=== PATIENT | male | born 1955 | race African-American/Black ===

== ENCOUNTER 2019-05-17 12:27 | Emergency (ER) | payer OTHER ==
[~2019-05-17] VITALS: Ht 170.2 cm; Wt 100.0 kg
[~2019-05-17 12:27] MED LIST: GLIM4TAB2 PO; HYDR12.529 PO; PRAV20TA57 PO
[2019-05-17 16:02] VITALS: BP 152/76
== END 2019-05-17 15:53 | disposition home or self-care (01) ==
LOC: ER 14:43
DX: J02.9 Acute pharyngitis, unspecified (principal); F17.200 Nicotine dependence, unspecified, uncomplicated; Z79.899 Other long term (current) drug therapy
CPT/HCPCS: 70360; 71046; 99283